=== PATIENT | male | born 1980 | race Two or more races ===

== ENCOUNTER 2024-11-04 18:09 | Emergency (ER) | payer BC ==
[2024-11-04] MEDS: Ketorolac 30 MG/ML SDV IM STA (18:56)
== END 2024-11-04 19:05 | disposition home or self-care (01) ==
LOC: MW.ED 18:09
DX: L03.115 Cellulitis of right lower limb (principal); I10 Essential (primary) hypertension; Z79.899 Other long term (current) drug therapy
CPT/HCPCS: 96372; 99283; J1885